=== PATIENT | male | born 1970 | race Hispanic/Latino ===

== ENCOUNTER 2020-06-22 10:56 | Emergency (ER) | payer OTHER, SELFPAY ==
--- NOTE | ~2020-06-22 | XR_ITS ---
EXAMINATION: XR finger 2nd LT min 2V DATE: 06/22/2020 11:20 INDICATION: Left hand second digit penetrating injury. TECHNIQUE: 4 views of left hand second digit were obtained. COMPARISON: None. FINDINGS: Bone alignment is normal. No fracture. 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 There are small frag ments of heterotopic ossification adjacent to second distal interphalangeal joint. IMPRESSION: 1. No acute fracture or radiopaque foreign body. Reviewed, dictated and finalized at location B.
--- NOTE | 2020-06-22 11:08 | ED.GENADULT ---
HPI - General Adult General Chief complaint: Extremity Injury, Upper Stated complaint: lt hand finger laceration Time Seen by Provider: 06/22/20 11:08 Source: patient and RN notes reviewed Mode of arrival: ambulatory Limitations: no limitations History of Present Illness HPI narrative: 49-year-old male presents with complaints of LT index (2nd) finger pain and swelling after stabbing self with a screw gun 1 day ago. Screw went through the palm area into nail bed per Edgar. Ibuprofen with little relief. Denies numbness or tingling. No weakness of finger(s). Denies fever or chills. Denies immobility. Exacerbation is movement and palpation of finger. Relieving factor is rest. Dominant hand is RIGHT HAND. Unknown of new break in skin. Denies drainage. Tetanus vaccine not up-to-date, will update today. Remains active. The patient reports he have not been diagnosed with COVID-19. The patient reports he is not waiting for the results of a COVID-19 lab test. The patient reports he do not have fever, chills, weakness, or fatigue. The patient reports he do not have a new or worsening cough or shortness of breath. Denies chest pain. The patient reports he do not have any rhinorrhea, congestion, loss of taste, sore throat, nausea, vomiting, abdominal pain, and diarrhea. Tolerating po intake well. Denies recent traveling. Denies concerns for COVID-19 or exposures been home with limited outdoor exposure except for essential household needs, work, and return home. At this time, patient is not suspected of having COVID-19. Some parts of this dictation were generated by voice recognition software and may contain typographical and/or grammatical inaccuracies. Related Data Allergies Allergy/AdvReac Type Severity Reaction Status Date / Time No Known Allergies Allergy Verified 06/22/20 11:01 Review of Systems Review of Systems: Narrative: CONSTITUTIONAL: Denies fever, chills, sweats. EYES: Denies visual changes, redness, discharge. ENT: Denies rhinorrhea, congestion, sore throat, otalgia. CARDIOVASCULAR: Denies chest pain, palpitations, edema. RESPIRATORY: Denies dyspnea, wheezing, cough. GASTROINTESTINAL: Denies abdominal pain, nausea, vomiting, diarrhea. SKIN: Denies rash or itching. MUSCULOSKELETAL: Denies acute back pain or myalgia. Complains of LT index (2nd) finger pain and swelling. Needs a tetanus vaccine. NEUROLOGIC: Denies numbness or focal weakness. PSYCHIATRIC: Denies anxiety or depression. All systems reviewed & are unremarkable except as noted in HPI and below PMFSH Past Medical History Medical History (Updated 06/23/20 @ 00:00 by Tameka Cedeño) Carpal tunnel syndrome Cyst Surgical History Surgical History (Updated 06/22/20 @ 13:36 by JESUS Hopkins) History of carpal tunnel surgery bilateral History of right knee surgery cyst removed Family History Family History (Updated 06/22/20 @ 13:37 by JESUS Hopkins) Father , in 2009 related to kidney disease Diabetes mellitus Heart disease Mother , in related to pneumonia had a form of cancer also Diabetes mellitus Social History Social History (Updated 06/22/20 @ 13:38 by JESUS Hopkins) Smoking packs per day: 0.5 Smoking cigarettes per day: 10.0 Years smoked: 32 Smoking pack-years: 16.00 Smoking status: Current every day smoker Tobacco type: cigarettes Second hand tobacco smoke exposure: Yes Alcohol intake: current Living arrangements: with family Occupation/Education: occupation Gender identity (if verbalized by the patient): Male Sexual Orientation (if Verbalized by the Patient): Straight or Heterosexual Comments At time of signature, agree with nurse past medical, surgical, social, and family history. There is no relevant family history pertinent to the presenting complaint. Exam Narrative: Exam Narrative: GENERAL: This is a well-nou
[2020-06-22 11:09] VITALS: BP 120/67; PULSE 65; RESP 16; TEMP 36.4; O2SAT 99
[2020-06-22] MEDS: TETANUS,DIPHTHERIA,AC PERTUSSIS ADULT (0.5 ML) BOOSTRIX IM (11:13)
[2020-06-22 11:26] VITALS: BP 120/67; PULSE 65; RESP 16; TEMP 36.4; O2SAT 99
== END 2020-06-22 11:39 | disposition home or self-care (01) ==
PROVIDERS: Emergency Provider Nurse Practitioner Family
DX: S61.231A Puncture wound without foreign body of left index finger without damage to nail, initial encounter (principal); W27.0XXA Contact with workbench tool, initial encounter; F17.210 Nicotine dependence, cigarettes, uncomplicated; Z23 Encounter for immunization
CPT/HCPCS: 73140; 90471; 90715; 99203; G0463

== ENCOUNTER 2021-07-19 16:23 | Emergency (ER) | payer OTHER, SELFPAY ==
--- NOTE | ~2021-07-19 | CT_ITS ---
EXAMINATION: CT abdomen pelvis w con DATE: 07/19/2021 18:40 INDICATION: Intermittent epigastric abdominal pain for several months. Nausea and vomiting. TECHNIQUE: Computed tomography (CT) of the abdomen and pelvis was performed with 100 cc Omnipaque 350 intravenous contrast. Automated exposure control and iterative reconstruction technique were employe d. Exam dose: 481.71 mGy-cm total exam DLP. COMPARISON: 12/24/2011 CT abdomen pelvis FINDINGS: There is minimal dependent atelectasis at the lung bases. Normal heart size. No pericardial or pleural effusion. There is evidence of a stone lodged at the gallbladder neck with prominent edema of the gallbladder w all, suggesting acute cholecystitis. No bile duct dilatation is evident. There is hepatic steatosis, relatively sparing the pericholecystic area. No hepatic, splenic, pancrea tic, and adrenal or renal space-occupying mass lesion is detected. No urinary tract calculus or hydroureteronephrosis. The urinary bladder is unremarkable. Moderate pro state enlargement. Normal caliber of the abdominal aorta. No intraperitoneal or retroperitoneal or pelvic mass lesion or adenopathy or ascites. Normal appendix. No bowel obstruction or intraperitoneal free air. Small fat-containing right inguinal hernia. Degenerative spurring of the lower thoracic spine. Moderately prominent degenerative disc disease at L3-4 and L4-5. No suspicious osteolytic or osteoblastic lesions. IMPRESSION: Cholelithiasis and acute cholecystitis Hepatic steatosis Reviewed, dictated and finalized at [facility]. Reviewed, dictated and finalized at location A.
[2021-07-19 16:36] VITALS: BP 126/81; PULSE 92; RESP 18; TEMP 36.9; O2SAT 100
[2021-07-19 16:52] VITALS: BP 123/90; BP 135/91; PULSE 57; PULSE 73
[2021-07-19 16:56] VITALS: BP 131/92; PULSE 65
--- NOTE | 2021-07-19 16:58 | ED.NAVMDI ---
HPI - Nausea/Vomiting/Diarrhea General Chief complaint: Nausea/Vomiting/Diarrhea Stated complaint: vomiting Time Seen by Provider: 07/19/21 16:43 Source: patient Mode of arrival: ambulatory Limitations: no limitations History of Present Illness HPI Narrative: This is a 50 year old male that presents to the ER for abdominal pain, nausea and vomiting since this AM. Reports epigastric abdominal pain. Reports the pain has now radiated down into his lower abdomen as well. Associated with multiple episodes of nausea and vomiting. Reports history of chronic nausea and vomiting. He has had multiple studies and images without cause of this found. He used to see Dr. Roberson, but he has not seen him in a couple of years. Denies fever, diarrhea, hematochezia, or dysuria. Related Data Allergies Allergy/AdvReac Type Severity Reaction Status Date / Time No Known Allergies Allergy Verified 07/19/21 16:46 Review of Systems Review of Systems: CONSTITUTIONAL: Denies fever GASTROINTESTINAL: Reports abdominal pain, nausea, vomiting. Denies diarrhea. GENITOURINARY: Denies dysuria or hematuria. All systems reviewed & are unremarkable except as noted in HPI and below PMFSH Past Medical History Medical History (Updated 07/19/21 @ 20:32 by Sarah Albrecht PA-C) Carpal tunnel syndrome Cyst Surgical History Surgical History (Updated 06/22/20 @ 13:36 by JESUS Hopkins) History of carpal tunnel surgery bilateral History of right knee surgery cyst removed Family History Family History (Updated 06/22/20 @ 13:37 by JESUS Hopkins) Father , in 2009 related to kidney disease Diabetes mellitus Heart disease Mother , in related to pneumonia had a form of cancer also Diabetes mellitus Social History Social History (Updated 07/19/21 @ 17:04 by Sarah Albrecht PA-C) Smoking packs per day: 0.5 Smoking cigarettes per day: 10.0 Years smoked: 32 Smoking pack-years: 16.00 Smoking status: Current every day smoker Tobacco type: cigarettes Second hand tobacco smoke exposure: Yes Alcohol intake: current Substance use: current Substance use type: marijuana Gender identity (if verbalized by the patient): Male Sexual Orientation (if Verbalized by the Patient): Straight or Heterosexual Exam Narrative: GENERAL: Well-appearing, well-nourished, and in no acute distress. HEAD: Normocephalic, atraumatic. EYES: EOMI. CHEST: Clear to auscultation. No respiratory distress. No wheezes rales or rhonchi HEART: Regular rate and rhythm. No murmur heard. Normal peripheral pulses. ABDOMEN: Soft, nondistended, normal active bowel sounds. Tender to palpation throughout the abdomen, without guarding. No CVA tenderness EXTREMITIES: Normal range of motion. No edema. SKIN: Warm, dry, no rash. NEURO: No focal deficits. Alert and oriented x3. PSYCH: Normal mood and affect Course Consultations Consultation #1: Spoke with Dr. Billy about patient and work-up. Would like patient started on ciprofloxacin and will follow up in clinic Date: 07/19/21 Time: 20:35 Vital Signs Vital signs: Vital Signs Temperature 98.4 F 07/19/21 16:36 Pulse Rate 92 07/19/21 16:36 Respiratory Rate 18 07/19/21 16:36 Blood Pressure 126/81 07/19/21 16:36 Pulse Oximetry 100 07/19/21 16:36 Temperature 98.4 F 07/19/21 16:36 Pulse Rate 54 L 07/19/21 19:34 Respiratory Rate 18 07/19/21 19:34 Blood Pressure 125/80 07/19/21 19:34 Pulse Oximetry 99 07/19/21 19:34 MDM - Nausea/Vomiting/Diarrhea MDM Narrative Medical decision making narrative: Patient presents to the emergency department for upper abdominal pain, nausea and vomiting. He is afebrile and nontoxic-appearing. His vitals are stable. CBC with mild leukocytosis to 11.5. Metabolic panel and lipase without concerning findings. UA without evidence of infection. CT scan of the abdomen and pelvis is consistent with acute
--- NOTE | 2021-07-19 16:59 | ECG_ITS ---
Measurements Intervals [place] Rate: 51 P: 56 IN: 148 QRS: 25 QRSD: 88 T: 30 QT: 420 QTc: 388 Interpretive Statements SINUS BRADYCARDIA INCOMPLETE RIGHT BUNDLE BRANCH BLOCK BORDERLINE ECG Electronically Signed On 07-19-2021 20:24:20 CDT by Lewis Zhou D.O.
[2021-07-19] MEDS: SODIUM CHLORIDE 0.9% IV 1,000 ML 999 ML IV CONT ×2 (17:51→19:10)
[2021-07-19 17:53] LABS: Basophils Percent Auto 0.1 % (0.2-1.2); Eosinophils Percent Auto 0.1 % (0-4.4); Hematocrit 46.5 % (42.0-52.0); Hemoglobin 15.7 g/dL (14.0-18.0); Immature Granulocyte Absolute 0.03 K/mm3 (0.00-0.031); Immature Granulocyte Percent A 0.3 % (0-0.5); Lymphocytes Absolute Auto 1.39 K/mm3 (0.9-3.2); Lymphocytes Percent Auto 12.1 % (18.3-44.2); Mean Corpuscular HGB Conc 33.8 g/dl (32-36); Mean Corpuscular Hemoglobin 31.5 pg (26-34); Mean Corpuscular Volume 93.4 fl (80-100); Mean Platelet Volume 12.1 fl (7.4-10.4); Monocytes Absolute Auto 0.5 K/mm3 (0.1-0.6); Monocytes Percent Auto 4.5 % (2.6-8.5); Neutrophils Absolute Auto 9.5 K/mm3 (1.3-6.7); Neutrophils Percent Auto 82.9 % (45.5-73.1); Platelet Count Result 221 k/mm3 (150-375); Red Blood Count 4.98 M/mm3 (4.6-6.20); Red Cell Distribution Width 13.3 % (11.5-14.5); White Blood Count 11.5 K/mm3 (4.5-10.0)
[2021-07-19] MEDS: METOCLOPRAMIDE HCL INJ 10 MG/2 ML VIAL IV PUSH (17:53)
[2021-07-19] MEDS: MORPHINE SULFATE (*CRX) 4 MG/ML INJ IV PUSH (17:54)
[2021-07-19] MEDS: diphenhydrAMINE HCl INJ 50 MG/ML VIAL 25 MG IV PUSH (17:56)
[2021-07-19] MEDS: FAMOTIDINE 20 MG/2 ML VIAL IV PUSH (17:58)
[2021-07-19 18:01] LABS: Add Urine Microscopic? YES; Appearance Urine Cloudy (Clear); Bilirubin Urine Negative (Negative); Blood Urine Negative (Negative); Color Urine Yellow (Yellow); Glucose Urine UA 1+ mg/dL (Negative); Ketones Urine Negative (Negative); Leukocyte Esterase Ur Negative LEU/UL (Negative); Mucus Urine Rare /lpf; Nitrate Urine Negative (Negative); Protein Urine 1+ mg/dL (Negative); Specific Grav Ur 1.027 (1.001-1.035); Urobilinogen Urine Negative mg/dL (<2.0)
--- NOTE | 2021-07-19 18:01 | PC.NURSE ---
I did not obtain this pt.'s EKG
[2021-07-19 18:06] LABS: Alanine Aminotransferase 22 U/L (4-50); Albumin Level 4.4 g/dL (3.5-5.1); Alkaline Phosphatase 64 U/L (38-126); Anion Gap 10 mmol/L (8-16); Aspartate Amino Transferase 30 U/L (17-59); Bilirubin,Total 0.6 mg/dL (0.2-1.3); Blood Urea Nitrogen 10 mg/dL (9-20); Calcium 9.2 mg/dL (8.4-10.2); Carbon Dioxide 25 mmol/L (22-30); Chloride 104 mmol/L (98-107); Estimated CRCL calculation 94 ml/min; Estimated Glomerular Filt Rate > 60; Glucose 122 mg/dL (65-110); Lipase 172 U/L (23-300); Potassium 3.8 mmol/L (3.4-5.0); Sodium 139 mmol/L (137-145)
--- NOTE | 2021-07-19 18:33 | PC.NURSE ---
pt off floor in radiology
[2021-07-19 19:34] VITALS: BP 125/80; PULSE 54; RESP 18; O2SAT 99
--- NOTE | 2021-07-19 20:16 | PC.NURSE ---
Spoke with Domitila, patient's sister, and gave an update on patient with patient permission.
--- NOTE | 2021-07-19 20:33 | PC.NURSE ---
Patient update by LEEANNA Smith, about stone in gallbladder. Toileting at this time, verbal orders to PO challenge.
[2021-07-19] MEDS: CIPROFLOXACIN 500 MG TAB PO (20:58)
[2021-07-19 21:15] VITALS: BP 107/74; PULSE 68; RESP 18; TEMP 37.1; O2SAT 100
== END 2021-07-19 21:18 | disposition home or self-care (01) ==
PROVIDERS: Physician Assistant; Emergency Provider Emergency Medicine
DX: K80.00 Calculus of gallbladder with acute cholecystitis without obstruction (principal); F17.210 Nicotine dependence, cigarettes, uncomplicated; K76.0 Fatty (change of) liver, not elsewhere classified; R00.1 Bradycardia, unspecified; I45.10 Unspecified right bundle-branch block
CPT/HCPCS: 36415; 74177; 80053; 81001; 83690; 85025; 93005; 96361; 96374; 96375; 99284; A9270; J0131; J1200; J2270; J2765; J7030; Q9967

== ENCOUNTER 2021-08-01 10:48 | Outpatient (CLI) | payer OTHER, SELFPAY ==
[2021-08-01 11:16] LABS: Amylase 118 U/L (30-110)
== END 2021-08-01 10:49 | disposition home or self-care (01) ==
LOC: ANHSURGERY 10:52
PROVIDERS: Visit Provider Surgery
DX: Z01.812 Encounter for preprocedural laboratory examination (principal); K80.10 Calculus of gallbladder with chronic cholecystitis without obstruction
CPT/HCPCS: 36415; 82150; 86850; 86900; 86901

== ENCOUNTER 2021-08-12 01:59 | Day surgery (SDC) | payer OTHER, SELFPAY ==
[2021-07-30 15:42] VITALS: BMI 29.0
--- NOTE | 2021-07-30 15:46 | PC.NURSE ---
Report to the Outpatient Waiting Room, entrance under the green pavilion located off [facility], at time _0600 on date _08/12/21 . OR Time: __729 . - You and your visitor will be asked a series of questions to screen for COVID 19 for your protection. - A mask is required within the hospital. - Only one visitor is allowed at this time. Patient visitors will be guided where to wait when not with patient. Preoperative COVID Testing Requirements: No COVID Test needed if: (proof is required; if not received patient will have Rapid Test prior to entry) - Patient has received COVID Vaccine at least 14 days prior to procedure date or - Patient has positive COVID test result within last 90 days of surgery date. COVID Test needed if above criteria is not met If not COVID vaccinated a COVID test must be conducted within 72 hours of surgery and patient is asked to isolate self from time of testing until procedure. You will go to the [facility] [[email or web address]] Testing Site for your COVID testing. The [facility] is located at the corner of [address] [facility]. You will only be called if COVID results are positive and your surgeon may reschedule your elective surgery date. Patients may have clear liquids (water, carbonated beverages, clear teas, apple juice) until 3 hours prior to surgery with a maximum of 20 ounces. - No food from midnight until time of surgery - Infants may have breast milk until 4 hours before surgery, infant formula 6 hours prior to surgery. - Children will be allowed to drink immediately following surgery. If applicable, please bring a bottle or sippy cup to assist with drinking. Juice, water, soda, and popsicles are readily available. For infants on formula, please bring formula the day of surgery. Pacifiers are allowed. Take the following medications with a SIP of water the morning of surgery: __NONE Medications to discontinue per physician Date to take last dose Please no make-up, nail bermudian, hairspray, perfume, deodorant, or body powder the day of surgery. No jewelry (including any body piercings) or valuables the day of surgery, leave them at home. Please take a shower or bath the night before, or the morning of, surgery with an antibacterial soap. Wear comfortable, loose fitting clothing. Children are encouraged to wear pajamas. - Jewelry must be removed prior to entering the operating room. Rings and piercings that are not removed may be cut off. - The hospital will not accept responsibility for valuables. - Please leave all valuables, including medications, at home the day of surgery. If you are going home after surgery, a licensed tour bus driver must drive you home. - NO public transportation without another adult. - We recommend that an adult stay with you for 24 hours following discharge. - We also recommend that you do not drive, make important decision, drink alcoholic beverages, or take any drugs that were not prescribed by your health care provider for at least 24 hours after your discharge time. For Pediatric surgeries, we recommend two adults accompany the child home (only one inside the building at this time). Follow any additional instructions given to you from your surgeon. Telephone instructions given to KARRIE MEMBRENO and asked if any additional questions and then verbalized understanding. Patient advised to call surgeon office or pre surgery nurse liaison [phone] if any additional questions.
[2021-08-12] VITALS (9 sets, daily range): BP systolic 98–139; BP diastolic 59–83; PULSE 49–61; RESP 12–19; TEMP 36.3–36.5; O2SAT 100
--- NOTE | 2021-08-12 08:13 | WPDANESEPPF ---
Anes - Initial Pre Proc Eval Procedure: Operation Date: 08/12/21 12:30 Proposed Procedures p Laparoscopic Cholecystectomy - Christelle Billy MD Date/Time: 08/12/21 08:13 Surgeon: Christelle Billy MD Pre Op Diagnosis: Acute Cholecystitis, Cholelithiasis Patient Data Age: 50 Gender: M Height: 1.65 m Weight: 79 kg Allergies Allergy/AdvReac Type Severity Reaction Status Date / Time No Known Allergies Allergy Verified 08/12/21 10:30 Home Medications Medication Instructions Recorded Confirmed Type hydrocodone-acetaminophen 1 tablet PO Q6H PRN #14 tablet 07/19/21 07/30/21 Rx promethazine 12.5 mg PO Q6H PRN #10 tablet 07/19/21 07/30/21 Rx Patient hx anesthesia problems: none Family hx anesthesia problems: none Results Review: All pre-operative results and documents have been reviewed as part of the pre-operative evaluation. COUNT INCLUDES THE [facility] Past Medical History Medical History Carpal tunnel syndrome Cyst Surgical History Surgical History History of carpal tunnel surgery bilateral History of right knee surgery cyst removed Family History Family History Father , in 2009 related to kidney disease Diabetes mellitus Heart disease Mother , in related to pneumonia had a form of cancer also Diabetes mellitus Kidney disease Social History Social History Smoking packs per day: 0.5 Smoking cigarettes per day: 10.0 Years smoked: 32 Smoking pack-years: 16.00 Smoking status: Current every day smoker Tobacco type: cigarettes Second hand tobacco smoke exposure: Yes Additional smoking assessment comments: 5 cigarettes a day Alcohol intake: current Substance use: current Substance use type: marijuana Other substance usage details: smokes daily hs Living arrangements: with family Gender identity (if verbalized by the patient): Male Sexual Orientation (if Verbalized by the Patient): Straight or Heterosexual Spiritual care concerns: No Anes - Eval Final PreProcedure Day of Procedure 08/12/21 08:13 Patient weight: overweight Heart: regular rate and rhythm Lungs: clear to auscultation and normal air movement Airway: Mallampati scale class II Neurological: alert and oriented Last oral intake: >/= 8 hours ASA classification: III Emergent: no Anesthetic plan: proceed Anesthesia type and monitoring: general ETT and standard monitoring Results Review: All pre-operative results and documents have been reviewed as part of the pre-operative evaluation. Informed Consent: The patient's anesthetic plan and its attendant risks and benefits were discussed with the patient/family/POA. Questions were solicited and answers provided to the satisfaction of the patient/family/POA.
[2021-08-12] MEDS: LACTATED RINGERS 1,000 ML 30 ML IV CONT ×2 (11:07→13:01)
[2021-08-12] MEDS: ACETAMINOPHEN 500 MG TABLET 1000 MG PO (11:08)
[2021-08-12] MEDS: KETOROLAC 15 MG/ML VIAL (*BKC) IV PUSH (11:10)
--- NOTE | 2021-08-12 11:32 | WPDHPUPDATE1 ---
History and Physical Update Update Date/Time: 08/12/21 11:32 History and Physical has been reviewed, including an updated exam of the patient. There are NO changes in the patient's condition. Risks, benefits, and alternatives have been discussed and questions answered. Patient agrees to proceed with procedure.
[2021-08-12] MEDS: ceFAZolin 2 GM/D5W 50 ML 2 GM/50 ML BAG IVPB (11:55)
[2021-08-12] MEDS: BUPIVACAINE HCL 0.5% PF 30 ML VIAL INFILTRATE (12:31)
--- NOTE | 2021-08-12 13:01 | W.PM.PROC2 ---
Procedure Note - Detailed Date of Procedure 08/12/21 Pre-op Diagnosis Acute Cholecystitis, Cholelithiasis Post-op Diagnosis same Procedure Performed Laparoscopic cholecystectomy Surgeon Christelle Billy MD Anesthesia general Indications 50-year-old male with acute cholecystitis, cholelithiasis. Patient presented to the emergency department after a severe attack and imaging consistent diagnosis Findings Cholecystitis with cholelithiasis Description of Procedure The patient was taken to the operating room placed in the supine position. After adequate induction of general anesthesia, the patient was prepped and draped in normal sterile fashion. A time-out was then performed to verify the patient's identity as well as the procedure being performed. I then made a 5 mm incision in the infraumbilical region. Through this, a Veress needle was placed into the peritoneal cavity and CO2 gas was then insufflated. After adequate pneumoperitoneum was achieved, the Veress needle was removed and a 5 mm optiview trocar was placed through this incision under direct visualization. I then placed the laparoscope through this trocar site and under direct visualization placed a further 12 mm subxiphoid port as well as 2 additional 5 mm ports in the right upper abdomen. The gallbladder was then identified and was noted to be moderately inflamed, distended, and full of gallstones. I was able to place a grasper at the dome of the gallbladder and this was retracted anterior and cephalad up over the liver. A 2nd retractor was then placed at the infundibulum and retracted laterally, this allowed visualization of the triangle of Calot. I then was able to visualize the cystic duct in its entirety from its proximal insertion into the gallbladder, to its distal junction with the common hepatic/common bile duct junction. At this point, I carefully skeletonized the proximal cystic duct with the [place] dissector. I then clipped and transected the proximal cystic duct. Next I visualized the cystic artery. Again the artery was skeletonized, clipped, and transected. I then used the Bovie cautery to take down the peritoneal attachments of the gallbladder off the liver bed. This was somewhat difficult given the amount of inflammation in the posterior space. Once the gallbladder specimen was completely detached, an endo-pouch was placed through the 12 mm port site. I then placed the gallbladder specimen into the Endo pouch and removed the endo-pouch from the 12 mm port site. The specimen will now be sent to pathology for further review. I then copiously irrigated the right upper quadrant. Some mild oozing was noted in the liver bed and this was controlled with the bovie cautery. I then placed some hemostatic powder in the liver bed. Hemostasis was noted in the liver bed, the clips were noted to be in good position on both the cystic duct stump and the cystic artery stump. No other pathology was noted in the right upper quadrant. I then moved the laparoscope to the subxiphoid port. No iatrogenic injury or other pathology was noted in the lower abdomen. I then closed the 12 mm trocar site under direct visualization using the Mario cone and 0 Vicryl suture. At this point, the abdomen was desufflated and all ports removed. All port sites were then closed with 4.O Monocryl subcuticular sutures. Dermabond was placed on each incision. The patient tolerated the procedure well, was extubated in the operating room postoperative and will be transferred to the recovery room in stable condition Estimated Blood Loss 40 Drains No Packing No Pathology yes Complications No immediate complications Condition stable Disposition PACU
[2021-08-12] MEDS: fentaNYL CITRATE INJ (*CRX) 100 MCG/2 ML VIAL 25 MCG IV PUSH ×3 (13:28→13:55)
[2021-08-12] MEDS: oxyCODONE HCL (*CRX) 5 MG TAB IR PO (14:35)
== END 2021-08-12 15:40 | disposition home or self-care (01) ==
PROVIDERS: Visit Provider Surgery
PROC: 0FT44ZZ Resection of Gallbladder, Percutaneous Endoscopic Approach (ICD-10-PCS; CPT 47562; principal; 2021-08-12 12:30)
DX: K80.10 Calculus of gallbladder with chronic cholecystitis without obstruction (principal); G56.00 Carpal tunnel syndrome, unspecified upper limb; F17.210 Nicotine dependence, cigarettes, uncomplicated; F12.90 Cannabis use, unspecified, uncomplicated
CPT/HCPCS: 47562; 36415; 82150; 86850; 86900; 86901; 88304; A9270; J0690; J1100; J1885; J2250; J2405; J2704; J2710; J3010; J7030; J7120